=== PATIENT | female | born 1985 | race Caucasian/White ===

== ENCOUNTER 2021-03-16 14:39 | Observation (INO) ==
[2021-03-16 15:19] LABS: Basophils % 0.6 %; Eosinophils # 0.1 K/mcL (0.0-0.6); Eosinophils % 1.7 %; Hematocrit 41.8 % (35.3-44.9); Hemoglobin 13.6 g/dL (11.5-15.4); Immature Granulocytes % 0.2 % (0-4); Lymphocytes # 2.1 K/mcL (0.6-4.6); Lymphocytes % 31.1 %; Mean Corpuscular HGB Conc 32.5 g/dL (31.6-35.5); Mean Corpuscular Hemoglobin 28.7 pg (28.0-33.3); Mean Corpuscular Volume 88.2 fL (83.0-100.0); Monocytes # 0.5 K/mcL (0.0-1.3); Monocytes % 7.2 %; Neutrophils # 3.9 K/mcL (1.6-8.9); Platelet Count 313 K/mcL (140-400); Red Blood Count 4.74 M/mcL (3.82-4.97); Red Cell Distribution Width 13.2 % (11.5-14.5); Segmented Neutrophils % 59.2 %; White Blood Count 6.6 K/mcL (4.3-11.1)
[2021-03-16 15:39] LABS: Acetaminophen < 10 mcg/mL (10-20); BUN/Creatinine Ratio 12 (6-26); Blood Urea Nitrogen 8 mg/dL (6-20); Calcium 9.6 mg/dL (8.6-10.3); Carbon Dioxide 29 mEq/L (23-29); Chloride 104 mEq/L (98-107); Ethanol < 10 mg/dL (Less than 10); Glucose 130 mg/dL (70-105); Osmolality,Calculated 288 (280-300); Potassium 3.5 mEq/L (3.5-5.1); Salicylate < 2.5 mg/dL (15.0-30.0); Sodium 139 mEq/L (136-145); eGFR For African Americans > 60 (> 60); eGFR For Non-African Americans > 60 (> 60)
[2021-03-16 16:05] LABS: Bacteria,Urine Few per hpf (None-Few); Bilirubin,Urine Negative (Negative); Blood,Urine Trace (Negative); Clarity,Urine Turbid (Clear); Color,Urine Light-Yellow (Yellow); Glucose,Urine (UA) Normal (Normal); Ketones,Urine Negative (Negative); Leukocyte Esterase,Urine Negative (Negative); Mucus,Urine Few per lpf (None-Few); Nitrite,Urine Negative (Negative); PH,Urine 6.5 pH Units (5.0-8.0); Protein,Urine Negative (Neg-Trace); RBC,Urine 0-3 per hpf (0-3); Specific Gravity,Urine 1.011 (1.010-1.025); Squamous Epithelial Cell,Urine Moderate per hpf (None-Few); WBC,Urine 0-3 per hpf (0-3)
[2021-03-16 16:08] LABS: Amphetamine Screen,Urine Negative ng/mL (Cutoff=1000); Barbiturate Screen,Urine Negative ng/mL (Cutoff=200); Benzodiazepines Screen,Urine Negative ng/mL (Cutoff=200); Cannabinoid Screen,Urine Positive ng/mL (Cutoff = 50); Cocaine Screen,Urine Negative ng/mL (Cutoff= 300); Opiate Screen,Urine Negative ng/mL (Cutoff=300); Phencyclidine Screen,Urine Negative ng/mL (Cutoff=25)
[2021-03-16] MEDS ORDERED: *HR* LORazepam 0.5 MG TABLET PO ONE (16:56)
[2021-03-16 18:34] LABS: Influenza A PCR Negative (Negative); Influenza B PCR Negative (Negative); Resp. Syncytial Virus PCR Negative (Negative); SARS-CoV-2 by PCR (In House) Negative (Negative)
[2021-03-16] MEDS ORDERED: *HR* LORazepam 1 MG TABLET PO PRN (18:49)
[2021-03-16] MEDS ORDERED: haloperidoL 5 MG TABLET PO PRN (18:49)
[2021-03-16] MEDS ORDERED: *HR* LORazepam 2 MG/ML VIAL IM PRN (18:49)
[2021-03-16] MEDS ORDERED: Haloperidol Lactate 5 MG/ML VIAL IM PRN (18:49)
[2021-03-16] MEDS ORDERED: Acetaminophen 325 MG TABLET PO PRN (18:49)
[2021-03-16] MEDS ORDERED: Mag Hydrox/Al Hydrox/Simeth 30 ML UDC PO PRN (19:02)
[2021-03-16] MEDS ORDERED: MOM Conc 10 ML UD.LIQ PO PRN (19:02)
[2021-03-16] MEDS: traZODone 50 MG TABLET PO PRN (22:29)
[2021-03-16] MEDS: hydrOXYzine pamoate 25 MG CAPSULE PO PRN (22:29)
[2021-03-17] MEDS: hydrOXYzine pamoate 25 MG CAPSULE PO PRN ×2 (08:32→20:04)
[2021-03-17] MEDS ORDERED: *HR* LORazepam 0.5 MG TABLET PO PRN (15:37)
[2021-03-17] MEDS: traZODone 50 MG TABLET PO PRN (21:26)
[2021-03-18] MEDS: BuPROPion XL (24 HR) 150 MG TABLET PO SCH (09:56)
[2021-03-18 20:41] VITALS: O2SAT 98
[2021-03-18] MEDS: traZODone 50 MG TABLET PO PRN (21:17)
[2021-03-19] MEDS: BuPROPion XL (24 HR) 150 MG TABLET PO SCH (08:52)
[2021-03-19] MEDS: hydrOXYzine pamoate 25 MG CAPSULE PO PRN (08:53)
[2021-03-19 10:25] VITALS: BP 96/65; PULSE 89; TEMP 98.5
== END 2021-03-19 15:35 | disposition home or self-care (01) ==
LOC: EMEROOARM 14:39 → INTOOBSV 18:47 → 1ANU 18:47
PROVIDERS: ADMIT Psychiatry & Neurology Psychiatry; ATTEND Psychiatry & Neurology Psychiatry